=== PATIENT | female | born 1970 | race Caucasian/White ===

== ENCOUNTER 2022-11-07 19:43 | Emergency (ER) | payer OTHER ==
[~2022-11-07] VITALS: Ht 177.8 cm; Wt 88.9 kg
[2022-11-07] MEDS ORDERED: CLIMARA1 EAC1 (19:51)
[2022-11-07] MEDS ORDERED: COZAAR100 MG (19:51)
[2022-11-07] MEDS ORDERED: NORVASC2.5 M1 (19:51)
[2022-11-07] MEDS ORDERED: CARVEDILOL25 MG (19:52)
== END 2022-11-07 23:04 | disposition home or self-care (01) ==
LOC: ER 19:43
DX: K21.9 Gastro-esophageal reflux disease without esophagitis (principal)

== ENCOUNTER 2023-01-27 06:25 | Day surgery (SDC) | payer OTHER ==
[~2023-01-27 06:25] MED LIST: CARVEDILOL25 MG; CLIMARA1 EAC1; COZAAR100 MG; NORVASC2.5 M1
== END 2023-01-27 12:55 | disposition home or self-care (01) ==
LOC: AMB-ENDOS 06:25
PROVIDERS: ATTEND Colon & Rectal Surgery
DX: D37.4 Neoplasm of uncertain behavior of colon (principal); R10.32 Left lower quadrant pain; R19.4 Change in bowel habit; K64.8 Other hemorrhoids; Z20.822 Contact with and (suspected) exposure to COVID-19